=== PATIENT | female | born 1965 | race Caucasian/White ===

== ENCOUNTER 2019-02-28 22:26 | Emergency (ER) | payer OTHER, SELFPAY ==
--- NOTE | 2019-02-28 22:35 | ED.GENADULT ---
HPI - General Adult General Chief complaint: Wound/Laceration Stated complaint: Gash on left leg Time Seen by Provider: 02/28/19 22:33 Source: patient Mode of arrival: ambulatory Limitations: no limitations History of Present Illness HPI narrative: Patient is a 54-year-old female here for evaluation of a cut of her left leg. She states that she was on a stepladder and fell and landed on her left knee causing the cut on the ladder. States that her last tetanus shot was in 2011. [place] for concerns of potential tendon injury. Related Data Previous Rx's Medication Instructions Recorded cephalexin [Keflex] 500 mg PO BID 10 Days #20 cap 02/28/19 cephalexin [Keflex] 500 mg PO QID 7 Days #28 cap 02/28/19 Allergies Allergy/AdvReac Type Severity Reaction Status Date / Time No Known Drug Allergies Allergy Verified 02/28/19 22:40 Review of Systems Constitutional Denies headache(s) ENT Ears, Nose, Mouth, and Throat: Denies headache(s) and Denies disequilibrium Musculoskeletal Denies myalgias and Reports arthralgias (Left knee) Integumentary/Breasts Comments: Cut to left knee Neurologic Denies headache(s), Denies paresthesias and Denies disequilibrium Hematologic/Lymphatic Denies easy bleeding and Denies easy bruising PFSH Medical History Patient denies medical problems (Acute) Surgical History No pertinent past surgical history (Acute) Social History Smoking Status: Never smoker Social History Smoking Status: Never smoker Exam Initial Vital Signs Initial Vital Signs: Vital Signs Temperature 98.2 F 02/28/19 22:37 Pulse Rate 98 H 02/28/19 22:37 Respiratory Rate 14 02/28/19 22:37 Blood Pressure 163/85 H 02/28/19 22:37 Pulse Oximetry 95 02/28/19 22:37 Const General: cooperative, comfortable, well developed, well groomed and No acute distress Orientation: alert, awake and oriented x3 HENMT Head: normal to inspection and normocephalic Resp Effort & Inspection: normal respiratory effort Skin Other: 20 cm laceration in a ?U? shaped just distal to the left knee over the patella tendon. No active bleeding. Neuro General: alert, awake and oriented x3 Gait: normal gait Extrem Other: Under direct visualization the left knee was flexed and extended without apparent injury of the patella tendon or the joint capsule. Psych Appearance: grossly normal and well kempt Procedures Laceration Repair Laceration 1: Site: lower extremity Side (If applicable): left Size (cm): 20 Description: linear Depth: simple, single layer Local Anesthetic: lidocaine 1% and with epi Amount of anesthesia used (mL): 12 Pre-repair: wound explored, irrigated extensively and deep structures intact Skin layer closed with: nylon Size (cm): 3-0 Number of sutures: 18 Technique: simple, interrupted Orthopedic Splinting/Casting Injury #1: Side: left Lower Extremity Injury Location: knee Lower Extremity Immobilizer: Alex wrap Post splinting neuro exam: intact Post splinting vascular exam: intact Placed by: Nursing Course Orders Ordered: Discontinued Medications Diphtheria/Tetanus/Acell Pertussis (Adacel) 0.5 ml IM .ONCE ONE Stop: 02/28/19 22:42 Last Admin: 02/28/19 22:45 Dose: 0.5 ml Vital Signs - 8 hr 02/28/19 22:37 Temperature 98.2 F Pulse Rate 98 H Respiratory Rate 14 Blood Pressure 163/85 H Pulse Oximetry 95 Medical Decision Making MDM Narrative Medical decision making narrative: Does not appear to be any tendon or joint capsule injury under direct visualization. The wound was irrigated extensively. Patient's tetanus was updated. Was ambulatory so no x-rays needed. Skin was closed as described above without complication. Patient was given a prescription for antibiotics to the nature of the injury. Patient given return precautions and follow-up instructions a care instructions with regard to the splint. She is placed in an Alex bandage to limit the flex and extension of the knee. She expressed understanding and agreement with plan. Discharge Plan Departure Patient Disposition: Home Clinical Impression: Laceration Discharge Date/Time: 02/28/19 23:51 Interventions: ED Discharge Assessment Last Done: 02/28/19 23:51 Instructions: DI for Laceration Repair Activity Restrictions/Additional Instructions: Keep the bandage on for the next 24 hours. After that you can take the bandage off and shower like normal. Avoid putting your left knee in flexion such as crouching on the ground. Take the antibiotics as directed. Return to the emergency department for any new or worsening symptoms Prescriptions: New cephalexin [Keflex] 500 mg capsule 500 mg PO BID 10 Days Qty: 20 RF: 0 cephalexin [Keflex] 500 mg capsule 500 mg PO QID 7 Days Qty: 28 RF: 0
[2019-02-28 22:37] VITALS: BP 163/85; PULSE 98; RESP 14; TEMP 36.8; O2SAT 95; BMI 22.6
[2019-02-28] MEDS: TET,DIPH,PERTUSS(ACELL),VAC/PF 0.5 ML SYRINGE IM (22:45)
--- NOTE | 2019-02-28 23:01 | PC.NURSE ---
Wound cleansed with NS and Pulse Lavage. Pt tolerated well. Denies pain.
== END 2019-02-28 23:51 | disposition home or self-care (01) ==
PROVIDERS: Emergency Provider Emergency Medicine
DX: S81.812A Laceration without foreign body, left lower leg, initial encounter (principal); W11.XXXA Fall on and from ladder, initial encounter; Z23 Encounter for immunization
CPT/HCPCS: 12005; 90471; 99283; 90715